=== PATIENT | female | born 1990 ===

== ENCOUNTER → 2018-11-19 | Outpatient (CLI) | payer BC ==
[~2018-11-19] MED LIST: PREN-127 PO
[2018-11-19 10:05] LABS: PLATELET COUNT, AUTOMATED 210 K/uL (150-450)
== END ==
LOC: LAB 08:33
PROVIDERS: ATTEND Obstetrics & Gynecology
DX: Z34.81 Encounter for supervision of other normal pregnancy, first trimester (principal)
CPT/HCPCS: 36415; 81001; 85025; 86592; 86703; 86762; 86850; 86900; 86901; 87088; 87340; 87491; 87591